=== PATIENT | male | born 1965 | race Caucasian/White ===

== ENCOUNTER 2016-12-08 00:20 | Emergency (ER) | payer OTHER, MEDICAID ==
[~2016-12-08] VITALS: Ht 167.6 cm; Wt 56.7 kg
--- NOTE | 2016-12-08 00:20 | NUR ---
TAKEN TO ROOM VIA GURNEY. STATES "I WAS LOOKING FOR ATTENTION SO I JUMPED INTO THE [facility]". DENIES SI/HI OR ANY PHYSICAL C/O. NON DIAPHORETIC. RESP EVEN AND UNLABORED.
--- NOTE | 2016-12-08 01:30 | NUR ---
AMBULATED TO RESTROOM WITH STEADY GAIT. DENIES SI/HI OR ANY MEDICAL C/O AT THIS TIME. RESP EVEN AND UNLABORED.
[2016-12-08 01:55] LABS: BASOPHILS % (AUTO) 0.4 % (0.0-2.0); EOSINOPHILS % (AUTO) 0.2 % (0.0-6.0); HEMATOCRIT 42 % (39-51); HEMOGLOBIN 14.6 g/dL (13.5-17.5); LYMPHOCYTES # (AUTO) 2.8 /CMM (0.8-4.8); LYMPHOCYTES % (AUTO) 22.4 % (20.0-44.0); MEAN CORPUSCULAR HEMOGLOBIN 31 PG (26.0-33.0); MEAN CORPUSCULAR HGB CONC 35 g/dl (31.0-36.0); MEAN CORPUSCULAR VOLUME 88 fL (80-96); MONOCYTES # (AUTO) 0.8 /CMM (0.1-1.30); MONOCYTES % (AUTO) 5.9 % (2.0-12.0); NEUTROPHILS % (AUTO) 71.1 % (43.0-81.0); PLATELET COUNT (AUTO) 241 /CMM (150-450); RDW COEFFICIENT OF VARIATION 13.3 (11.5-15.0); RED BLOOD CELL COUNT(AUTO) 4.78 MIL/uL (4.5-6.0); WHITE BLOOD COUNT (AUTO) 12.7 K/uL (4.3-11.0)
[2016-12-08 02:04] LABS: CALCIUM, SERUM 9.3 mg/dL (8.5-10.1); CARBON DIOXIDE 29 mmol/L (21-32); CHLORIDE 105 mmol/L (98-107); CREATININE 0.8 mg/dL (0.6-1.3); GLUCOSE 117 mg/dL (74-106); SODIUM SERUM 141 mmol/L (136-145); UREA NITROGEN, BLOOD 7 mg/dL (7-18)
[2016-12-08 02:10] LABS: ACETAMINOPHEN 0 ug/ml (10-30); ALANINE AMINOTRANSFERASE 32 U/L (12-78); ALBUMIN 3.4 g/dL (3.4-5.0); ALCOHOL, BLOOD < 3 mg/dL (0-0); ALKALINE PHOSPHATASE 71 U/L (46-116); ASPARTATE AMINOTRANSFERASE 29 U/L (15-37); BILIRUBIN,DIRECT 0.1 mg/dL (0.0-0.2); BILIRUBIN,TOTAL 0.5 mg/dL (0.2-1.0); SALICYLATE 7.7 mg/dL (2.8-20.0); TOTAL PROTEIN, SERUM 6.8 g/dL (6.4-8.2)
[2016-12-08] MEDS ORDERED: OLANZAPINE 5 MG TABLET PO ONE (02:30)
[2016-12-08] MEDS ORDERED: LORAZEPAM 1 MG TABLET PO ONE (02:30)
--- NOTE | 2016-12-08 02:40 | NUR ---
INFORMED OF PLAN OF CARE. STILL DENIES SI/HI. GIVEN WATER REQUESTED.
--- NOTE | 2016-12-08 03:10 | NUR ---
DR. MONZON FROM [facility] TALKING TO DR. POLK
[2016-12-08] MEDS ORDERED: OLANZAPINE 5 MG TABLET ONE (03:11)
[2016-12-08] MEDS ORDERED: LORAZEPAM 1 MG TABLET ONE (03:11)
--- NOTE | 2016-12-08 03:18 | NUR ---
MEDICATED ORDERED AND GIVEN ANOTHER WARM BLANKET REQUESTED.
--- NOTE | 2016-12-08 03:26 | NUR ---
CALLED GEORGE PARKER FOR PSYCH EVAL.
--- NOTE | 2016-12-08 04:15 | NUR ---
WATCHING TV; AWAITING PSYCH EVAL. NO S/S OF DISTRESS NOTED. RESP EVEN AND UNLABORED.
--- NOTE | 2016-12-08 05:00 | NUR ---
Phone message received at 0245 from MICHELLE An to alert that a patient will need psychiatric evaluation. A secondary notification via phone consultation received at 0315 from MICHELLE Bautista with a report of patient's apparent emergency course. At 0505, this psychiatric mmi teacher presented to the emergency department, and reviewed clinical course in the emergency care unit. Verbal report of reason for consultation; and physician ([facility])-to-physician ([place]) interactions was also obtained. Concurrent behavioral presentation was also confirmed as noted in the physician's note. Attempted to evaluate patient at 0520. Patient was lying in bed, appeared comfortable, with head of bed at 25-degrees. Patient is sleeping, and this mmi teacher intended to awaken patient by verbal command without any response. Patient is unable to respond to touch, however, retracts to painful stimulus. Review of current medication list provided by [facility] done and emegency care unit's medication administration record showed that patient was given 10mg of Olanzepine and 2mg of Lorazepam after the phone consultation was made. Dr. Dawn was informed of an attempt to evaluate, but could not due to patient's current state. Nursing was made aware. The plan of care for this patient will be followed through a re-attempt to evaluate patient when awake and responsive.
--- NOTE | 2016-12-08 05:05 | NUR ---
RESTING WITH NO S/S OF DISTRESS. RESP EVEN AND UNALBORED.
--- NOTE | 2016-12-08 05:20 | NUR ---
GEORGE PARKER/CRISIS TEAM AT BEDSIDE.
--- NOTE | 2016-12-08 05:32 | NUR ---
PSYCH SALES REPRESENTATIVE DOOR TO DOOR UNABLE TO EXAMINE PT AT THIS TIME; PT SLEEPING AFTER SEDATION.
--- NOTE | 2016-12-08 06:08 | NUR ---
REMAINS RESTING WITH NO S/S OF DISTRESS. RESP EVEN AND UNLABORED. ON MONITOR
--- NOTE | 2016-12-08 07:02 | NUR ---
ENDORSED TO AM SHIFT FOR REYMUNDO.
--- NOTE | 2016-12-08 08:05 | NUR ---
Patient is sleeping comfortably in bed. VSS
--- NOTE | 2016-12-08 08:38 | NUR ---
PATIENT IS SLEEPING AT BS COMFORTABLY. VSS.
--- NOTE | 2016-12-08 11:18 | NUR ---
CALLED MICHELLE OLIVO FOR PSYCH EVAL. WAITING FOR RETURN CALL.
--- NOTE | 2016-12-08 11:25 | NUR ---
RECEIVED CALL BACK FROM ASHLEY OLIVO 1 HOUR
--- NOTE | 2016-12-08 11:26 | NUR ---
CALLED FOR FOOD.
--- NOTE | 2016-12-08 12:41 | NUR ---
SUE AT BEDSIDE FOR PSYCH EVAL
[2016-12-08 13:24] VITALS: BP 120/73
--- NOTE | 2016-12-08 13:43 | NUR ---
PALLAVI RN PET TEAM TRAFFIC TECHNICIAN CONTACTED [facility] TO PRESENT PT FOR POSSIBLE TRANSFER
--- NOTE | 2016-12-08 13:44 | NUR ---
4026 HOLD AND CLINICAL INFORMATION FAXED TO [facility]
--- NOTE | 2016-12-08 14:39 | NUR ---
CALLED [facility] [phone], SPOKE WITH RICHARD, SAID THEY ARE WAITING TO HEAR BACK FROM FACILITIES AND WILL CALL US WHEN THEY HEAR BACK
--- NOTE | 2016-12-08 14:54 | NUR ---
CALLED [facility], SPOKE WITH RICHARD, ASKED IF THEY WILL BE ABLE TO ACCEPT THE PT WITHIN A TIMELY MANNER, NOTIFIED HER WE DO HAVE PSYCHIATRIC BEDS AVAILABLE HERE, SHE TOLD ME TO GIVE HER A FEW MINUTES SHE IS GOING TO CONTACT THE FACILITY TO TRY TO EXPEDITE THE PROCESS
--- NOTE | 2016-12-08 15:23 | NUR ---
CALLED [facility], SPOKE WITH CAS[place], SHE SAID THEY ARE STILL WAITING TO HEAR BACK FROM FACILITIES AND THERE IS STILL NO BED AVAILABLE AT THIS TIME
--- NOTE | 2016-12-08 15:57 | NUR ---
PT ACCEPTED TO [facility], ACCEPTING MD IS DR. PADILLA NUMBER FOR REPORT IS [phone]. ETA FOR TRANSPORT IS [phone]
--- NOTE | 2016-12-08 17:00 | NUR ---
GAVE REPORT TO INOCENCIA AT [facility]. PATIENT DISCHARGE WITH PRIVATE AMBULANCE IN STABLE CONDITION
== END 2016-12-08 17:02 | disposition short-term general hospital (02) ==
LOC: ER 00:22
DX: F25.9 Schizoaffective disorder, unspecified (principal); F31.9 Bipolar disorder, unspecified; Z71.6 Tobacco abuse counseling; Z87.891 Personal history of nicotine dependence
CPT/HCPCS: 36415; 80048-TC; 80076-TC; 80305; 85025-TC; A4606; G0480; Z7610

== ENCOUNTER 2018-03-03 22:50 | Emergency (ER) | payer OTHER, MEDICAID ==
[~2018-03-03] VITALS: Ht 172.7 cm; Wt 82.1 kg
--- NOTE | 2018-03-03 22:50 | NUR ---
bib ra 60; si with plan; jump infront of train. PT IS HYPERTENSIVE BUT OTHERWISE VSS NO ACUTE DISTRESS AT THIS TIME. PT IS ALERT AND ORIENTED X3 ABLE TO MAKE NEEDS KNOWN. SKIN WARM AND INTACT. WILL CONTINUE TO MONITOR FOR ANY CHANGES DURING THE SHIFT.
--- NOTE | 2018-03-03 22:51 | NUR ---
ER MD COCHRAN AT BEDSIDE FOR EVAL
[2018-03-03 23:47] LABS: BASOPHILS % (AUTO) 0.4 % (0.0-2.0); EOSINOPHILS % (AUTO) 0.2 % (0.0-6.0); HEMATOCRIT 50 % (39-51); HEMOGLOBIN 16.7 g/dL (13.5-17.5); LYMPHOCYTES # (AUTO) 2.7 /CMM (0.8-4.8); LYMPHOCYTES % (AUTO) 21.6 % (20.0-44.0); MEAN CORPUSCULAR HEMOGLOBIN 32 PG (26.0-33.0); MEAN CORPUSCULAR HGB CONC 33 g/dl (31.0-36.0); MEAN CORPUSCULAR VOLUME 95 fL (80-96); MONOCYTES # (AUTO) 0.5 /CMM (0.1-1.30); MONOCYTES % (AUTO) 4.4 % (2.0-12.0); NEUTROPHILS # (AUTO) 9.1 /CMM (1.8-8.9); NEUTROPHILS % (AUTO) 73.4 % (43.0-81.0); PLATELET COUNT (AUTO) 240 /CMM (150-450); RDW COEFFICIENT OF VARIATION 12.8 (11.5-15.0); RED BLOOD CELL COUNT(AUTO) 5.26 MIL/uL (4.5-6.0); WHITE BLOOD COUNT (AUTO) 12.5 K/uL (4.3-11.0)
[2018-03-03 23:48] LABS: BILIRUBIN,URINE NEGATIVE (NEGATIVE); BLOOD, URINE 1+ Ery/uL (NEGATIVE); COLOR,URINE YELLOW (YELLOW); KETONES,URINE TRACE (NEGATIVE); LEUKOCYTE ESTERASE ,URINE NEGATIVE (NEGATIVE); NITRITE, URINE NEGATIVE (NEGATIVE); PH,URINE 5.5 (5.0-8.0); PROTEIN,URINE NEGATIVE (NEGATIVE); UGLUCOSE NEGATIVE (NEGATIVE); UROBILINOGEN,URINE 0.2 EU/dL (0.2)
[2018-03-03 23:58] LABS: CALCIUM, SERUM 8.7 mg/dL (8.5-10.1); CARBON DIOXIDE 21 mmol/L (21-32); CHLORIDE 102 mmol/L (98-107); GLUCOSE 109 mg/dL (74-106); POTASSIUM 3.7 mmol/L (3.5-5.1); SODIUM SERUM 139 mmol/L (136-145); UREA NITROGEN, BLOOD 14 mg/dL (7-18)
[2018-03-04 00:02] LABS: APPEARANCE,URINE HAZY (CLEAR)
[2018-03-04 00:04] LABS: BACTERIA,URINE None seen /HPF (None Seen); HYALINE CASTS, URINE Few /LPF (None Seen); MUCUS,URINE Few /LPF (None Seen); SQUAMOUS EPITHELIAL CELL,UR Few /HPF (None Seen)
[2018-03-04 00:05] LABS: ALANINE AMINOTRANSFERASE 12 U/L (12-78); ALBUMIN 3.7 g/dL (3.4-5.0); ALCOHOL, BLOOD 130 mg/dL (0-0); ALKALINE PHOSPHATASE 67 U/L (46-116); ASPARTATE AMINOTRANSFERASE 19 U/L (15-37); BILIRUBIN,DIRECT 0.1 mg/dL (0.0-0.2); BILIRUBIN,TOTAL 0.4 mg/dL (0.2-1.0); SALICYLATE 6.1 mg/dL (2.8-20.0); TOTAL PROTEIN, SERUM 7.4 g/dL (6.4-8.2)
[2018-03-04 00:06] LABS: ACETAMINOPHEN < 10 ug/ml (10-30)
--- NOTE | 2018-03-04 00:20 | NUR ---
CRISIS CLOTHING AND TEXTILES TEACHER AT BEDSIDE
--- NOTE | 2018-03-04 02:35 | NUR ---
[facility] [place] FAX#[phone]. PHONE #[phone]
--- NOTE | 2018-03-04 04:19 | NUR ---
PT ACCEPTED TO [facility] BY DR OSEI. # FOR REPORT [phone]. [id number]
--- NOTE | 2018-03-04 04:45 | NUR ---
REPORT GIVEN TO [facility] UNIT CHARGE NURSE.
--- NOTE | 2018-03-04 05:43 | NUR ---
PATIENT STABLE SLEEPING IN BED. WILL CONTINUE TO MONITOR FOR ANY CHANGES DURING THE SHIFT.
[2018-03-04 07:47] VITALS: BP 127/89
--- NOTE | 2018-03-04 07:48 | NUR ---
Awaiting transfer to , PC. Pt aware of pending transfer and concurs. He is cooperative, compliant and easily directable. NO obvious distress at admission baseline
--- NOTE | 2018-03-04 08:44 | NUR ---
transport here report toEMT NO acute changes. Stable
== END 2018-03-04 08:55 | disposition short-term general hospital (02) ==
LOC: ER 22:52
DX: R45.851 Suicidal ideations (principal); F32.9 Major depressive disorder, single episode, unspecified; F25.9 Schizoaffective disorder, unspecified
CPT/HCPCS: 36415; 80048; 80076; 80305; 80329; 81001; 85025; 99285; A4606; G0480 ×2; 81000-TC; Z7610

== ENCOUNTER 2018-07-23 04:54 | Emergency (ER) | payer MEDICAID, OTHER ==
[~2018-07-23] VITALS: Ht 167.6 cm; Wt 75.3 kg
--- NOTE | 2018-07-23 05:06 | NUR ---
PT BROUGHT IN BY FIRE ENGINE RESCUE, REPORTED OVERDOSE, PT ASSESED UPON ARRIVAL TO ER, VS STABLE, PT "STATES TRIED SUICIDE, INTENDED TO KILL SELF BY TAKING 70 PILLS OF TYLENOL", PLACED ON ER BED 6, AWAITING FOR DR COCHRAN TO ASSESS PT, POLICE AT PT BEDSIDE SHORTLY AFETER ARRIVAL TO ER 0510.
--- NOTE | 2018-07-23 05:23 | NUR ---
PT SEEN AT BEDSIDE BY ER DR COCHRAN AND ORDERS ENTERED.
[2018-07-23 05:35] LABS: BASOPHILS # (AUTO) 0.1 /CMM (0.0-0.2); BASOPHILS % (AUTO) 0.7 % (0.0-2.0); EOSINOPHILS % (AUTO) 0.3 % (0.0-6.0); HEMATOCRIT 45 % (39-51); HEMOGLOBIN 15.8 g/dL (13.5-17.5); LYMPHOCYTES # (AUTO) 3.5 /CMM (0.8-4.8); LYMPHOCYTES % (AUTO) 25.6 % (20.0-44.0); MEAN CORPUSCULAR HGB CONC 35 g/dl (31.0-36.0); MEAN CORPUSCULAR VOLUME 94 fL (80-96); MONOCYTES # (AUTO) 0.6 /CMM (0.1-1.30); MONOCYTES % (AUTO) 4.6 % (2.0-12.0); NEUTROPHILS # (AUTO) 9.5 /CMM (1.8-8.9); NEUTROPHILS % (AUTO) 68.8 % (43.0-81.0); PLATELET COUNT (AUTO) 184 /CMM (150-450); RED BLOOD CELL COUNT(AUTO) 4.82 MIL/uL (4.5-6.0); WHITE BLOOD COUNT (AUTO) 13.8 K/uL (4.3-11.0)
[2018-07-23 05:37] LABS: APPEARANCE,URINE CLEAR (CLEAR); BILIRUBIN,URINE 2+ (NEGATIVE); BLOOD, URINE TRACE Ery/uL (NEGATIVE); COLOR,URINE AMBER (YELLOW); KETONES,URINE 1+ (NEGATIVE); LEUKOCYTE ESTERASE ,URINE NEGATIVE (NEGATIVE); NITRITE, URINE NEGATIVE (NEGATIVE); PROTEIN,URINE TRACE mg/dl (NEGATIVE); UGLUCOSE NEGATIVE (NEGATIVE); UROBILINOGEN,URINE 0.2 EU/dL (0.2)
[2018-07-23 05:44] LABS: CALCIUM, SERUM 8.9 mg/dL (8.5-10.1); CARBON DIOXIDE 17 mmol/L (21-32); CHLORIDE 98 mmol/L (98-107); CREATININE 1.1 mg/dL (0.6-1.3); GLUCOSE 88 mg/dL (74-106); POTASSIUM 3.1 mmol/L (3.5-5.1); SODIUM SERUM 134 mmol/L (136-145); UREA NITROGEN, BLOOD 25 mg/dL (7-18)
[2018-07-23 05:50] LABS: ALANINE AMINOTRANSFERASE 68 U/L (12-78); ALBUMIN 3.5 g/dL (3.4-5.0); ALCOHOL, BLOOD < 3 mg/dL (0-0); ALKALINE PHOSPHATASE 69 U/L (46-116); ASPARTATE AMINOTRANSFERASE 140 U/L (15-37); BILIRUBIN,DIRECT 0.5 mg/dL (0.0-0.2); BILIRUBIN,TOTAL 1.2 mg/dL (0.2-1.0); SALICYLATE 4.7 mg/dL (2.8-20.0); TOTAL PROTEIN, SERUM 7.5 g/dL (6.4-8.2)
[2018-07-23 05:52] LABS: ACETAMINOPHEN 0 ug/ml (10-30)
[2018-07-23 05:54] LABS: BACTERIA,URINE None seen /HPF (None Seen); HYALINE CASTS, URINE Few /LPF (None Seen); MUCUS,URINE Moderate /LPF (None Seen); RBC,URINE 21-50 /HPF (0-2); SQUAMOUS EPITHELIAL CELL,UR Few /HPF (None Seen)
[2018-07-23] MEDS ORDERED: POTASSIUM CHLORIDE 20 MEQ TAB.PRT.SR PO ONE ×4 (06:22→12:34)
[2018-07-23] MEDS ORDERED: IV NS 0.9% 1,000 ML BAG IV ONE ×2 (06:30→12:30)
--- NOTE | 2018-07-23 06:36 | NUR ---
POISON CONTROL CALLED SPOKE WITH JESUS MANUEL. RECOMMENDS GIVING NAC X 2 BAGS THEN REPEAT LFT. IF LFT CONTINUE ELEVATING ADMINISTER 3RD BAG THEN RECHECK LFT. RECOMMENDS REPEAT ASA AND CMP IN 3 HRS.
--- NOTE | 2018-07-23 06:37 | NUR ---
pt k+ 3.1, replaced with 60 meq tabs, iv fluids 2 L'S initiated bolus.
--- NOTE | 2018-07-23 06:42 | NUR ---
[facility] CALLED.
[2018-07-23 06:46] LABS: MAGNESIUM 2.2 mg/dL (1.8-2.4)
[2018-07-23] MEDS ORDERED: ACETYLCYSTEINE IV SCH (07:00)
[2018-07-23] MEDS ORDERED: D5W IV SCH (07:00)
--- NOTE | 2018-07-23 07:24 | NUR ---
report given to rn gilbert, r rn, pt stable at this time.
--- NOTE | 2018-07-23 07:26 | NUR ---
RECEIVED REPORT FROM MICHELLE HUBER, PT IS AWAKE AND ALERT, NOT IN RESPIRATORY DISTRESS, KEPT RESTED AND COMFORTABLE.
[2018-07-23] MEDS: ACETYLCYSTEINE IV SCH ×4 (08:18→13:47)
[2018-07-23] MEDS: D5W IV SCH ×4 (08:18→13:47)
[2018-07-23 09:12] LABS: CALCIUM, SERUM 7.5 mg/dL (8.5-10.1); CREATININE 0.9 mg/dL (0.6-1.3); POTASSIUM 3.2 mmol/L (3.5-5.1)
[2018-07-23 09:21] LABS: ALBUMIN 2.5 g/dL (3.4-5.0); BILIRUBIN,TOTAL 0.8 mg/dL (0.2-1.0)
--- NOTE | 2018-07-23 10:50 | NUR ---
RODERICK MARTINEZ FROM [facility] CALLED AT [phone], RE-ASSIGNING CASE TO ANOTHER MD AND WILL HAVE THEM TALK TO DR HERNANDEZ
[2018-07-23 11:25] LABS: ACETAMINOPHEN < 2 ug/ml (10-30); SALICYLATE 2.5 mg/dL (2.8-20.0)
[2018-07-23 11:38] LABS: ABG BASE EXCESS -3.9 mmol/L; ABG OXYGEN SATURATION 96.3 % (92.0-98.5); ABG PCO2 28.9 mmHg (35.0-45.0); ABG PH 7.435 (7.350-7.450); ABG PO2 86.9 mmHg (75.0-100.0); AaDO2 28.2 mmHg; COHb 1.1 % (0.5-1.5); MetHb 0.4 % (0.0-1.5); O2Hb 94.9 % (94.0-97.0); SITE, ABG Right Radial; VENT MODE, BG Room Air
--- NOTE | 2018-07-23 12:00 | NUR ---
TALKED TO LESLY OF POISON CONTROL.
--- NOTE | 2018-07-23 12:15 | NUR ---
NIKKY MICHEL DR. TO DR. JIANG
--- NOTE | 2018-07-23 12:42 | NUR ---
[facility] WILL BE TRANSFERRED TO [facility] ED - ACCEPTING PHYSCIAN IS DR. PETE ARELLANO IS SENDING A BLS RIG WITH ETA OF 1330 NUMBER FOR REPORT -
--- NOTE | 2018-07-23 13:16 | NUR ---
REPORT GIVEN TO MICHELLE CEDEÑO FOR REYMUNDO.
--- NOTE | 2018-07-23 14:01 | NUR ---
REPORT GIVEN TO EMT FOR TRANSFER TO [facility].
[2018-07-23 14:02] VITALS: BP 156/82
== END 2018-07-23 14:03 | disposition short-term general hospital (02) ==
LOC: ER 04:57
DX: T39.1X2A Poisoning by 4-Aminophenol derivatives, intentional self-harm, initial encounter (principal); T42.6X2A Poisoning by other antiepileptic and sedative-hypnotic drugs, intentional self-harm, initial encounter; R45.851 Suicidal ideations; E87.2 Acidosis; E87.6 Hypokalemia; F25.9 Schizoaffective disorder, unspecified; F32.9 Major depressive disorder, single episode, unspecified; Y92.89 Other specified places as the place of occurrence of the external cause
CPT/HCPCS: 36415; 36600 ×2; 71045; 80048; 80053; 80076; 80305; 80307; 80329 ×2; 81001; 82803; 82962; 83605; 83735; 84484 ×2; 85025; 93005 ×2; 96365; 96366; 99291; A4606; G0480 ×2; J0132 ×2; J7030 ×2; J7060 ×2; 81000-TC

== ENCOUNTER 2019-08-19 19:27 | Emergency (ER) | payer OTHER ==
[~2019-08-19] VITALS: Ht 167.6 cm; Wt 81.6 kg
[2019-08-19 19:34] VITALS: BP 141/89
[2019-08-19] MEDS ORDERED: ACETAMINOPHEN 325 MG TABLET PO ONE (20:30)
[2019-08-19] MEDS ORDERED: ACETAMINOPHEN 325 MG TABLET ONE (20:37)
--- NOTE | 2019-08-19 21:30 | NUR ---
Patient discharged to home in stable condition. Written and verbal after care instructions given. Patient verbalizes understanding of instruction.
--- NOTE | 2019-08-19 21:32 | NUR ---
PATIENT LEFT WITHOUT CD.
== END 2019-08-19 21:33 | disposition home or self-care (01) ==
LOC: ER 19:28
DX: S42.352A Displaced comminuted fracture of shaft of humerus, left arm, initial encounter for closed fracture (principal); F25.9 Schizoaffective disorder, unspecified; F10.10 Alcohol abuse, uncomplicated; F32.9 Major depressive disorder, single episode, unspecified; W18.39XA Other fall on same level, initial encounter; Y93.89 Activity, other specified; Y92.89 Other specified places as the place of occurrence of the external cause; Y99.8 Other external cause status; Y90.9 Presence of alcohol in blood, level not specified
CPT/HCPCS: 73030-TC

== ENCOUNTER 2019-11-17 04:41 | Emergency (ER) | payer OTHER, MEDICAID ==
[~2019-11-17] VITALS: Ht 167.6 cm; Wt 81.6 kg
--- NOTE | 2019-11-17 04:45 | NUR ---
PT AAOX4. AMBULATORY WITH STEADY GAIT. [id number] FROM HOME FOR S/I, PLANS TO JUMP OFF RAILROAD TRACKS AND GET ELECTROCUTED. -HI. RR EVEN AND UNLABORED, DENIES PAIN. PLACED IN GOWN, BELONINGS PLACED IN LOCKER. SITTER AT BEDSIDE. VSS. MD AT BEDSIDE FOR EVAL.
[2019-11-17 05:03] LABS: BASOPHILS # (AUTO) 0.1 /CMM (0.0-0.2); BASOPHILS % (AUTO) 0.8 % (0.0-2.0); EOSINOPHILS % (AUTO) 0.3 % (0.0-6.0); HEMATOCRIT 50 % (39-51); HEMOGLOBIN 17.5 g/dL (13.5-17.5); LYMPHOCYTES # (AUTO) 3.7 /CMM (0.8-4.8); LYMPHOCYTES % (AUTO) 36.6 % (20.0-44.0); MEAN CORPUSCULAR HGB CONC 35 g/dl (31.0-36.0); MEAN CORPUSCULAR VOLUME 93 fL (80-96); MONOCYTES # (AUTO) 0.6 /CMM (0.1-1.30); MONOCYTES % (AUTO) 6.2 % (2.0-12.0); NEUTROPHILS # (AUTO) 5.6 /CMM (1.8-8.9); NEUTROPHILS % (AUTO) 56.1 % (43.0-81.0); PLATELET COUNT (AUTO) 275 /CMM (150-450); RED BLOOD CELL COUNT(AUTO) 5.38 MIL/uL (4.5-6.0)
--- NOTE | 2019-11-17 05:10 | NUR ---
VIDEO GAMES MECHANIC AT BEDSIDE FOR LABS
[2019-11-17 05:11] LABS: CREATININE 0.9 mg/dL (0.6-1.3); POTASSIUM 3.7 mmol/L (3.5-5.1)
--- NOTE | 2019-11-17 05:13 | NUR ---
URINE SENT TO LAB
[2019-11-17 05:16] LABS: BILIRUBIN,DIRECT 0.2 mg/dL (0.0-0.2); BILIRUBIN,TOTAL 0.6 mg/dL (0.2-1.0); SALICYLATE 5.9 mg/dL (2.8-20.0); TOTAL PROTEIN, SERUM 7.9 g/dL (6.4-8.2)
[2019-11-17 05:21] LABS: APPEARANCE,URINE Clear (CLEAR); BILIRUBIN,URINE SMALL (NEGATIVE); BLOOD, URINE Small Ery/uL (NEGATIVE); COLOR,URINE Yellow (YELLOW); KETONES,URINE Trace (NEGATIVE); LEUKOCYTE ESTERASE ,URINE Negative (NEGATIVE); NITRITE, URINE Negative (NEGATIVE); PROTEIN,URINE Negative (NEGATIVE); UGLUCOSE Negative (NEGATIVE)
[2019-11-17 05:40] LABS: BACTERIA,URINE Few /HPF (None Seen); WBC,URINE 0-2 /HPF (0-3)
[2019-11-17 05:41] LABS: MUCUS,URINE Few /LPF (None Seen); SQUAMOUS EPITHELIAL CELL,UR Few /HPF (None Seen)
--- NOTE | 2019-11-17 06:13 | NUR ---
CALLED [facility] PER ER ORDER
--- NOTE | 2019-11-17 06:16 | NUR ---
[facility] MORALES ON THE PHONE W/ DR ZHAO
--- NOTE | 2019-11-17 07:03 | NUR ---
Patient is resting comfortably in bed. Easily aroused. VSS
--- NOTE | 2019-11-17 07:56 | NUR ---
[place] [phone] Buffy LENTZ transport in 1 hr
--- NOTE | 2019-11-17 08:04 | NUR ---
Report given to Arleen MARTINEZ for jillian.
[2019-11-17 08:50] VITALS: BP 130/81
--- NOTE | 2019-11-17 08:52 | NUR ---
Patient picked up by private ambulance via gurney accompanied by 2 emt in no distress, going to [facility], denies any pain or discomfort at this time, nor chest pain.
== END 2019-11-17 08:52 ==
LOC: ER 04:41
DX: R45.851 Suicidal ideations (principal); F32.9 Major depressive disorder, single episode, unspecified; F25.9 Schizoaffective disorder, unspecified; F91.3 Oppositional defiant disorder
CPT/HCPCS: 36415; 80048; 80076; 80305; 80307; 80329; 81001; 85025; 99285; G0480; 81000-TC